=== PATIENT | female | born 1940 | race Caucasian/White ===

== ENCOUNTER 2022-08-12 09:21 | Outpatient (CLI) | payer OTHER, SELFPAY ==
--- NOTE | 2022-08-12 09:49 | ECG_ITS ---
Measurements Intervals [place] Rate: 72 P: 31 MS: 146 QRS: -13 QRSD: 151 T: 106 QT: 402 QTc: 441 Interpretive Statements SINUS RHYTHM LEFT BUNDLE BRANCH BLOCK BASELINE ARTIFACT- I, II, III, AVR, AVL, AVF, V1-V6 ABNORMAL ECG NO PREVIOUS ECG AVAILABLE FOR COMPARISON Electronically Signed On 08-12-2022 10:19:54 ALLERGIST/IMMUNOLOGIST by Walker Stearns D.O.
[2022-08-12 10:52] LABS: INR 1.1; Prothrombin Time 13.9 Seconds (11.1-14.7)
[2022-08-12 10:53] LABS: Partial Thromboplastin Time 24.7 SECONDS (22.3-36.8)
== END 2022-08-12 09:22 | disposition home or self-care (01) ==
LOC: ANHSURGERY 09:40
PROVIDERS: Urology; Visit Provider Urology
DX: Z01.812 Encounter for preprocedural laboratory examination (principal); Z01.810 Encounter for preprocedural cardiovascular examination; N20.0 Calculus of kidney; I10 Essential (primary) hypertension; I44.7 Left bundle-branch block, unspecified
CPT/HCPCS: 36415; 85610; 85730; 87086; 93005

== ENCOUNTER 2022-08-15 00:17 | Day surgery (SDC) | payer OTHER, SELFPAY ==
[2022-08-07 13:07] VITALS: BMI 28.5
--- NOTE | 2022-08-07 13:26 | PC.NURSE ---
PRE-OP INSTRUCTIONS, PLEASE READ CAREFULLY Report to the Outpatient Waiting Room, entrance under the green pavilion located off [facility], at time _0600_ on date _08/15/22_. Planned Procedure Time: _0730_. Time changes happen often and if your time is changed the preop area will call you the afternoon before. - You and your visitor will be asked to self-screen and do not enter if you have any COVID symptoms. - Only one visitor is requested with a max of two and NO children visitors are allowed at this time. - The patient visitor may be requested to leave or wait in car when not with patient due to distancing restrictions. - A mask is REQUIRED within the hospital. Patients may have clear liquids (water, carbonated beverages, clear teas, apple juice) until 3 hours prior to surgery (0430 AM) with a maximum of 20 ounces. - No food from midnight until time of surgery Take the following medications with a SIP of water the morning of surgery: __NONE__ Medications to discontinue per physician __N/A____, Date to take last dose Please no make-up, nail sinhala, hairspray, perfume, deodorant, or body powder the day of surgery. No jewelry (including any body piercings) or valuables the day of surgery, leave them at home. Please take a shower or bath the night before, or the morning of, surgery with an antibacterial soap. Wear comfortable, loose fitting clothing. - Jewelry must be removed prior to entering the operating room. Rings and piercings that are not removed may be cut off. - The hospital will not accept responsibility for valuables. - Please leave all valuables, including medications, at home the day of surgery. If you are going home after surgery, a licensed regional tanker truck driver must drive you home. - NO public transportation without another adult if you receive anesthesia. - We recommend that an adult stay with you for 24 hours following discharge. - We also recommend that you do not drive, make important decision, drink alcoholic beverages, or take any drugs that were not prescribed by your health care provider for at least 24 hours after your discharge time. Follow any additional instructions given to you from your surgeon. If you or anyone in your household have experienced Covid symptoms in the past week, please notify your surgeon or the nurse liaison at the phone number below for possible testing. Telephone instructions given to _PATIENT_and asked if any additional questions and then verbalized understanding. Patient advised to call surgeon office or pre surgery nurse liaison [phone] if any additional questions.
--- NOTE | 2022-08-14 10:17 | WPDANESEPPF ---
Anes - Initial Pre Proc Eval Procedure: Operation Date: 08/15/22 07:30 Proposed Procedures p Left Extracorporeal Shock Wave Lithotripsy - Florentino Isaacs MD s Cystoscopy with Left Stent Insertion - Flornetino Isaacs MD Date/Time: 08/14/22 10:17 Surgeon: Florentino Isaacs MD Pre Op Diagnosis: Lt Renal Stone Patient Data Age: 81 Gender: F Height: 1.64 m Weight: 77.27 kg Allergies Allergy/AdvReac Type Severity Reaction Status Date / Time No Known Allergies Allergy Verified 08/15/22 06:22 Home Medications Medication Instructions Recorded Confirmed Type losartan 25 mg tablet 25 mg QAM 08/07/22 08/07/22 History Patient hx anesthesia problems: none Family hx anesthesia problems: none Results Review: All pre-operative results and documents have been reviewed as part of the pre-operative evaluation. [facility] Past Medical History Medical History (Updated 08/14/22 @ 10:17 by Israel Connolly DO) Hypertension Left bundle branch block Surgical History Surgical History (Updated 08/14/22 @ 10:17 by Israel Connolly DO) History of hysterectomy Social History Social History Smoking status: Never smoker Second hand tobacco smoke exposure: No Alcohol intake: never Substance use: never Living arrangements: alone Spiritual care concerns: No Anes - Eval Final PreProcedure Day of Procedure 08/14/22 10:17 Patient weight: overweight Heart: regular rate and rhythm Lungs: clear to auscultation Airway: Mallampati scale class II Neurological: alert and oriented Last oral intake: >/= 8 hours ASA classification: III Emergent: no Anesthetic plan: proceed Anesthesia type and monitoring: general LMA and standard monitoring Results Review: All pre-operative results and documents have been reviewed as part of the pre-operative evaluation. Informed Consent: The patient's anesthetic plan and its attendant risks and benefits were discussed with the patient/family/POA. Questions were solicited and answers provided to the satisfaction of the patient/family/POA.
[2022-08-15] VITALS (7 sets, daily range): BP systolic 135–156; BP diastolic 64–85; PULSE 62–84; RESP 14–18; TEMP 36.2–36.7; O2SAT 98–100
--- NOTE | ~2022-08-15 | XR_ITS ---
EXAMINATION: XR retrograde pyelo w/stent LT DATE: 08/15/2022 08:09 INDICATION: Left ureteral stone. TECHNIQUE: 5 intraoperative fluoroscopic views of the abdomen and pelvis were obtained. I was not pre sent. Fluoroscopy exposure time was 24 seconds. COMPARISON: Abdomen radiographs 08/15/22 FINDINGS: The dental technology advisor images demonstrate a 5 mm stone in proximal left ureter. The left-sided retrograd e pyelogram is unremarkable. The final images demonstrate a left internal ureteral stent in expected position. IMPRESSION: 1. Stone in proximal left ureter. 2. Left internal ureteral stent in expected position. Reviewed, dictated and finalized at location A. TO LOADER
--- NOTE | ~2022-08-15 | XR_ITS ---
Supine and upright views of the abdomen Clinical history: Lithotripsy, renal stone Findings: Bowel gas pattern is nonspecific. No evidence for obstruction or free air. There is a 5 mm stone in the region of the left renal pelvis or proximal left ureter. Probable calcified pelvic phleb oliths. Osseous structures are intact. Impression: 5 mm stone at the left renal pelvis/proximal left ureter. Probable calcified pelvic phleboliths. Distal ureteral stone difficult to exclude. Reviewed, dictated and finalized at location . STRAIGHTENER Impression: 5 mm stone at the left renal pelvis/proximal left ureter. Probable calcified pelvic phleboliths. Distal ureteral stone difficult to exclu de.
[2022-08-15] MEDS: LACTATED RINGERS 1,000 ML 30 ML IV CONT (06:31)
--- NOTE | 2022-08-15 07:29 | WPDHPUPDATE1 ---
History and Physical Update Update Date/Time: 08/15/22 07:29 History and Physical has been reviewed, including an updated exam of the patient. There are NO changes in the patient's condition. Risks, benefits, and alternatives have been discussed and questions answered. Patient agrees to proceed with procedure. Jackie took Alleve last night. Will cancel eswl but proceed with cystoscopy, left retrograde pyelogram, left stent placement and reschedule the eswl
[2022-08-15] MEDS: ceFAZolin 2 GM/D5W 50 ML 2 GM/50 ML BAG IVPB (07:43)
[2022-08-15] MEDS: LIDOCAINE HCL 2% GEL UROJET 10 ML PKG MUCOUS MEM (08:04)
--- NOTE | 2022-08-15 08:07 | W.PM.PROC2 ---
Procedure Note - Detailed Date of Procedure 08/15/22 Pre-op Diagnosis Lt Renal Stone Post-op Diagnosis Same Procedure Performed Cystoscopy, left retrograde pyelogram, left stent placement 4.8 Zimbabwean contour Surgeon Florentino Isaacs MD Anesthesia General Description of Procedure Patient stating the operative suite correctly identified. Once anesthesia was a plane she was placed in a dorsal lithotomy position prepped draped usual sterile fashion. Twenty-two Zimbabwean scope concern the bladder. There were no tumors noted. Left ear orifice was cannulated with a [place] and a pyelogram was performed. No filling defects noted other than the 1 at the UPJ from the stone. Bentson wire was then placed. A 4.8 [place]an contour was then inserted with proximal end coiled in the renal pelvis and the distal end in the bladder. 2% viscous lidocaine was inserted into the urethra. Patient was taken to recovery in stable condition. Will plan on scheduling outpatient lithotripsy at a later point time. She is instructed to not take any anti-inflammatories aspirin products or vitamins for the week before please send a copy of this report to my office Estimated Blood Loss 0 Drains Yes Packing No Pathology None sent Complications No immediate complications Condition Stable Disposition PACU
== END 2022-08-15 09:34 | disposition home or self-care (01) ==
PROVIDERS: Visit Provider Urology
PROC: (CPT 52352; 2022-08-15 07:30)
DX: N20.1 Calculus of ureter (principal); I10 Essential (primary) hypertension; I44.7 Left bundle-branch block, unspecified
CPT/HCPCS: 52332; 36415; 74018; 74420; 85610; 85730; 87086; 93005; A9270; C1758; C1769; C2617; J0690; J1100; J2405; J2704; J3010; J7120

== ENCOUNTER 2022-08-25 08:26 | Outpatient (CLI) | payer OTHER, SELFPAY ==
[2022-08-25 10:32] LABS: INR 1.1; Prothrombin Time 13.7 Seconds (11.1-14.7)
[2022-08-25 10:33] LABS: Partial Thromboplastin Time 25.3 SECONDS (22.3-36.8)
== END 2022-08-25 08:27 | disposition home or self-care (01) ==
PROVIDERS: Visit Provider Urology
DX: Z01.812 Encounter for preprocedural laboratory examination (principal); N20.0 Calculus of kidney
CPT/HCPCS: 36415; 85610; 85730; 87086

== ENCOUNTER 2022-08-29 00:54 | Day surgery (SDC) | payer OTHER, SELFPAY ==
--- NOTE | 2022-08-21 13:04 | PC.NURSE ---
PRE-OP INSTRUCTIONS, PLEASE READ CAREFULLY Report to the Outpatient Waiting Room, entrance under the green pavilion located off [facility], at time _0630_ on date _08/29/22_. Planned Procedure Time: _0830_. Time changes happen often and if your time is changed the preop area will call you the afternoon before. - You and your visitor will be asked to self-screen and do not enter if you have any COVID symptoms. - Only one visitor is requested with a max of two and NO children visitors are allowed at this time. - The patient visitor may be requested to leave or wait in car when not with patient due to distancing restrictions. - A mask is required within the hospital. Patients may have clear liquids (water, carbonated beverages, clear teas, apple juice) until 3 hours prior to surgery (0530 AM) with a maximum of 20 ounces. - No food from midnight until time of surgery Take the following medications with a SIP of water the morning of surgery: _TRAMADOL IF NEEDED_ Medications to discontinue - _ADVIL PER DR. DELGADO'S INSTRUCTIONS PATIENT STATES 7 DAYS PRIOR TO SURGERY, Date to take last dose_08/21/22_ Please no make-up, nail croatian, hairspray, perfume, deodorant, or body powder the day of surgery. No jewelry (including any body piercings) or valuables the day of surgery, leave them at home. Please take a shower or bath the night before, or the morning of, surgery with an antibacterial soap. Wear comfortable, loose fitting clothing. - Jewelry must be removed prior to entering the operating room. Rings and piercings that are not removed may be cut off. - The hospital will not accept responsibility for valuables. - Please leave all valuables, including medications, at home the day of surgery. If you are going home after surgery, a licensed retail delivery driver must drive you home. - NO public transportation without another adult if you receive anesthesia. - We recommend that an adult stay with you for 24 hours following discharge. - We also recommend that you do not drive, make important decision, drink alcoholic beverages, or take any drugs that were not prescribed by your health care provider for at least 24 hours after your discharge time. Follow any additional instructions given to you from your surgeon. If you or anyone in your household have experienced Covid symptoms in the past week, please notify your surgeon or the nurse liaison at the phone number below for possible testing. Telephone instructions given to _PATIENT_and asked if any additional questions and then verbalized understanding. Patient advised to call surgeon office or pre surgery nurse liaison [phone] if any additional questions.
[2022-08-21 13:07] VITALS: BMI 29.4
[2022-08-29] VITALS (8 sets, daily range): BP systolic 104–183; BP diastolic 68–99; PULSE 70–77; RESP 14–16; TEMP 36.5–37.1; O2SAT 98–100
--- NOTE | ~2022-08-29 | XR_ITS ---
Supine and upright views of the abdomen Clinical history: Lithotripsy COMPARISON: 08/15/2022 Findings: Bowel gas pattern is nonspecific. Left ureteral stent is in place. Left renal stone present , probably towards the lower pole the left kidney or possibly at the renal pelvis. Presumed pelvic ph leboliths are unchanged. Osseous structures are intact. Impression: Left ureteral stent with left renal stone, as detailed above. Presumed pelvic phleboliths. Reviewed, dictated and finalized at location . RER HIDES AND SKINS Impression: Left ureteral stent with left renal stone, as detailed above. Presumed pelvic phleboliths.
[2022-08-29] MEDS: LACTATED RINGERS 1,000 ML 30 ML IV CONT (07:00)
--- NOTE | 2022-08-29 07:28 | WPDHPUPDATE1 ---
History and Physical Update Update Date/Time: 08/29/22 07:28 History and Physical has been reviewed, including an updated exam of the patient. There are NO changes in the patient's condition. Risks, benefits, and alternatives have been discussed and questions answered. Patient agrees to proceed with procedure. Proceed with left renal eswl
--- NOTE | 2022-08-29 08:22 | P.PNAN_ITS ---
Anes - Initial Pre Proc Eval Procedure: Operation Date: 08/29/22 08:30 Proposed Procedures p Left Extracorporeal Shock Wave Lithotripsy - Florentino Isaacs MD s Cystoscopy with Left Stent Placement - Florentino Isaacs MD Date/Time: 08/29/22 08:22 Surgeon: Florentino Isaacs MD Pre Op Diagnosis: Renal Stone, Left Patient Data Age: 81 Gender: F Height: 1.64 m Weight: 78.6 kg Last Vital Signs Temp 37.1 C 08/29/22 07:35 Pulse 77 08/29/22 07:35 Resp 14 08/29/22 07:35 BP 161/86 H 08/29/22 07:35 Pulse Ox 99 08/29/22 07:35 O2 Del Method Room Air 08/29/22 07:35 Allergies Allergy/AdvReac Type Severity Reaction Status Date / Time No Known Allergies Allergy Verified 08/29/22 07:38 Home Medications Medication Instructions Recorded Confirmed Type losartan 25 mg tablet 25 mg QAM 08/07/22 08/21/22 History ibuprofen 200 mg tablet (Advil) 200 mg PO Q6H PRN Pain 08/21/22 08/21/22 History tramadol 50 mg tablet 50 mg Q6H PAIN 08/21/22 08/21/22 History Patient hx anesthesia problems: none Family hx anesthesia problems: none Results Review: All pre-operative results and documents have been reviewed as part of the pre- operative evaluation. [facility] Past Medical History Medical History (Updated 08/14/22 @ 10:17 by Israel Connolly DO) Hypertension Left bundle branch block Surgical History Surgical History (Updated 08/14/22 @ 10:17 by Israel Connolly DO) History of hysterectomy Social History Social History Smoking status: Never smoker Second hand tobacco smoke exposure: No Alcohol intake: never Substance use: never Substance use type: does not use Living arrangements: alone Spiritual care concerns: No Anes - Eval Final PreProcedure Day of Procedure 08/29/22 08:22 Patient weight: overweight Heart: regular rate and rhythm Lungs: clear to auscultation Airway: Mallampati scale class II Neurological: alert and oriented Last oral intake: >/= 8 hours ASA classification: III Emergent: no Anesthetic plan: proceed Anesthesia type and monitoring: general LMA and standard monitoring Results Review: All pre-operative results and documents have been reviewed as part of the pre- operative evaluation. Informed Consent: The patient's anesthetic plan and its attendant risks and benefits were discussed with the patient/family/POA. Questions were solicited and answers provided to the satisfaction of the patient/family/POA.
[2022-08-29] MEDS: ceFAZolin 2 GM/D5W 50 ML 2 GM/50 ML BAG IVPB (08:41)
--- NOTE | 2022-08-29 09:08 | W.PM.PROC2 ---
Procedure Note - Detailed Date of Procedure 08/29/22 Pre-op Diagnosis Renal Stone, Left Post-op Diagnosis Same Procedure Performed Lithotripsy of left renal calculus Surgeon Florentino Isaacs MD Anesthesia General Description of Procedure Patient is taken to the operative suite correctly identified. Once anesthesia was obtained the stone was localized in both planes. Two thousand five hundred shocks were given to the stone. There appeared to be fragmentation of the stone. Patient tolerated procedure well without any complications and was taken recovery stable condition. She will follow-up in 7-10 days with KUB. Please send a copy of op note to my office. Estimated Blood Loss 0 Drains No Packing No Pathology None sent Complications No immediate complications Condition Stable Disposition PACU
== END 2022-08-29 10:41 | disposition home or self-care (01) ==
PROVIDERS: Visit Provider Urology
PROC: (CPT 50590; principal; 2022-08-29 08:30)
DX: N20.0 Calculus of kidney (principal); I10 Essential (primary) hypertension; I44.7 Left bundle-branch block, unspecified
CPT/HCPCS: 50590; 36415; 74018; 85610; 85730; 87086; A9270; J0690; J1100; J2405; J2704; J7030; J7120

== ENCOUNTER 2022-09-15 11:37 | Outpatient (CLI) | payer OTHER, SELFPAY ==
--- NOTE | ~2022-09-15 | XR_ITS ---
EXAMINATION: XR abdomen/kub 1V INDICATION: Renal stone, lithotripsy TECHNIQUE: Supine views of the abdomen were obtained on 2 radiographs. COMPARISON: 08/29/2022 FINDINGS: A left internal ureteral stent is in expected position. A previously identified 3 mm stone of the left kidney lower pole is no longer identified. There are phleboliths of the pelvis. No defini te stone or stone fragments are identified along the left internal ureteral stent. The bowel gas shawn joshua is normal. There is moderate osteoarthritis of the hips. The lung bases are clear. There is sever e lumbar spondylosis. IMPRESSION: 1. Left internal ureteral stent in expected position with interval treatment of a previously describe d left kidney lower pole stone. No definite urolithiasis identified. Reviewed, dictated and finalized at location B. ULA CLERK IMPRESSION: 1. Left internal ureteral stent in expected position with interval treatment of a previously described left kidney lower pole stone. No definite urolithiasis identified.
== END 2022-09-15 11:38 | disposition home or self-care (01) ==
PROVIDERS: Visit Provider Nurse Practitioner Family
DX: N20.0 Calculus of kidney (principal)
CPT/HCPCS: 74018

== ENCOUNTER 2024-01-14 11:39 | Outpatient (CLI) | payer OTHER, SELFPAY ==
--- NOTE | ~2024-01-14 | XR_ITS ---
XR abdomen/kub 1V Ordering provider: Dimas Plaza History: . N20.0 - Calculus of kidney F/U . Comparison: September 15, 2022 FINDINGS: BOWEL: Nonobstructive bowel gas pattern. ORGANOMEGALY: None. SIGNIFICANT PATHOLOGIC CALCIFICATIONS: Phleboliths in the pelvis. Calcifications seen just lateral to the left transverse process of L3 which may be a stone. Follow-up advised. OTHER: Degenerative spine. No free air is seen under the diaphragm. IMPRESSION: Calcifications seen just lateral to the left transverse process of L3 which may be a stone. Follow-up advised. Reviewed, dictated and finalized at location A.
== END 2024-01-14 11:40 | disposition home or self-care (01) ==
LOC: ANHIMG 11:41
PROVIDERS: Visit Provider Internal Medicine Nephrology
DX: N20.0 Calculus of kidney (principal)
CPT/HCPCS: 74018

== ENCOUNTER 2024-02-10 12:29 | Outpatient (CLI) | payer OTHER, SELFPAY ==
--- NOTE | ~2024-02-10 | CT_ITS ---
CT abdomen pelvis wo con Ordering provider: Dimas Plaza MD History: 83 years Female with . Stone protocol. . Comparison: None. Technique: CT abdomen and pelvis with IV and without oral contrast. Automated exposure control and it erative reconstruction technique were employed. The dose-length product was 216.67 mGy-cm. Findings: VISUALIZED LOWER CHEST: Dependent atelectatic changes. UPPER ABDOMINAL ORGANS: Liver: Benign calcifications. Small hypodensity in the left lobe of the liver measuring 1.6 cm most l ikely a small cyst. Follow-up advised. Gallbladder: Contracted. Spleen: Normal. Stomach/duodenum: Large sliding hiatus hernia. Pancreas: Normal. Adrenals: Normal. Kidneys: Tiny stone in the left kidney upper pole. Hypodensity in the left kidney lower pole Suggesti ve of small cyst. Hypodensity in the right renal pelvis which may be parapelvic cyst. Hydronephrotic changes is less li dillon. No dilatation the right ureter. Possibility of faint calcification the end of the right ureter cannot be excluded. PELVIC ORGANS: The bladder is normal. BOWEL AND MESENTERY: Colon: Mild sigmoid diverticulosis without diverticulitis. No evidence of appendicitis. Small Bowel: Normal. No obstruction. Peritoneum/mesentery: No free air or free fluid. No mesenteric lymphadenopathy. RETROPERITONEUM: Mild atheromatous disease of the abdominal aorta. No retroperitoneal lymphadenopat hy. MUSCULOSKELETAL: Superficial soft tissues: The superficial soft tissues are normal. Bones: Age appropriate degenerative changes of the spine. IMPRESSION: 1. No evidence of appendicitis, diverticulitis or intestinal obstruction. 2. Sliding hiatus hernia. 3. Tiny stone in the left kidney upper pole. Hypodensity in the left kidney lower pole Suggestive of small cyst. Hypodensity in the right renal pelvis which may be parapelvic cyst. Hydronephrotic changes is less li dillon. No dilatation the right ureter. Possibility of faint calcification the end of the right ureter cannot be excluded. Follow-up advised. Reviewed, dictated and finalized at location A. IMPRESSION: 1. No evidence of appendicitis, diverticulitis or intestinal obstruction. 2. Sliding hiatus hernia. 3. Tiny stone in the left kidney upper pole. Hypodensity in the left kidney low er pole Suggestive of small cyst. Hypodensity in the right renal pelvis which may be parapelvic cyst. Hydronephro tic changes is less likely. No dilatation the right ureter. Possibility of shelby t calcification the end of the right ureter cannot be excluded. Follow-up advis ed.
== END 2024-02-10 12:30 | disposition home or self-care (01) ==
PROVIDERS: Visit Provider Internal Medicine Nephrology
DX: N20.0 Calculus of kidney (principal); K44.9 Diaphragmatic hernia without obstruction or gangrene
CPT/HCPCS: 74176